=== PATIENT | male | born 1980 | race Caucasian/White ===

== ENCOUNTER 2024-06-18 21:01 | Inpatient (IN) | payer BC ==
[2024-06-18] MEDS ORDERED: Sodium Chloride 0.9% 10 ML Syringe FLUSH PRN (21:14)
[2024-06-18 21:21] LABS: BASOPHILS ABSOLUTE AUTO 0.1 K/mm3 (0.0-0.2); BASOPHILS PERCENT AUTO 0.4 % (0.0-1.0); EOSINOPHILS ABSOLUTE AUTO 0.1 K/mm3 (0.0-0.4); EOSINOPHILS PERCENT AUTO 1.1 % (0.0-6.0); HEMATOCRIT 48.3 % (42.0-52.0); HEMOGLOBIN 16.6 gm/dl (14.0-18.0); IMMATURE GRAN ABSOLUTE AUTO 0.02 K/mm3 (0.00-0.05); IMMATURE GRAN PERCENT AUTO 0.2 % (0.0-0.4); LYMPHOCYTES ABSOLUTE AUTO 1.6 K/mm3 (1.0-4.8); LYMPHOCYTES PERCENT AUTO 12.9 % (24.0-44.0); MEAN CORPUSCULAR HEMOGLOBIN 31.6 pg (28.0-32.0); MEAN CORPUSCULAR HGB CONC 34.4 g/dl (32.0-36.0); MEAN CORPUSCULAR VOLUME 91.8 fl (83.0-99.0); MEAN PLATELET VOLUME 9.8 fl (9.4-12.4); MONOCYTES ABSOLUTE AUTO 1.2 K/mm3 (0.0-0.8); MONOCYTES PERCENT AUTO 9.9 % (0.0-8.0); NEUTROPHILS ABSOLUTE AUTO 9.5 K/mm3 (1.8-7.7); NEUTROPHILS PERCENT AUTO 75.5 % (41.0-71.0); PLATELET COUNT,PLT 258 K/mm3 (150-400); RED BLOOD CELL COUNT 5.26 M/mm3 (4.52-5.90); WHITE BLOOD CELL COUNT,WBC 12.55 K/mm3 (3.9-11.3)
[2024-06-18] MEDS ORDERED: Naloxone 0.4 MG/ML SDV IVPUSH PRN (21:30)
[2024-06-18] MEDS: Metoprolol Tartrate 5 MG/5 ML SDV IV ONE (21:31)
[2024-06-18] MEDS: Aspirin 81 MG Tab.Chew PO ONE (21:32)
[2024-06-18] MEDS: Iopamidol 755 Mg/ML 100 ML Bottle IVPUSH ONE (21:32)
[2024-06-18] MEDS: Sodium Chloride 0.9% 45 ML IV SCH (21:33)
[2024-06-18] MEDS: Morphine 4 MG/ML Syringe IVPUSH ONE (21:36)
[2024-06-18 21:38] LABS: INR 1.07; PROTHROMBIN TIME 11.3 SECONDS (9.7-12.0)
[2024-06-18 21:40] LABS: PTT,PARTIAL THROMBOPLSTIN TIME 28.3 SECONDS (21.7-31.4)
[2024-06-18 21:46] LABS: A/G RATIO 0.9 (1-2); ALANINE AMINOTRANSFERASE,ALT 56 U/L (16-63); ALBUMIN 3.9 g/dl (3.4-5.0); ALKALINE PHOSPHATASE 67 U/L (46-116); ANION GAP 14.7 (5-15); ASPARTATE AMNIOTRANSFERASE,AST 39 U/L (15-37); BILIRUBIN TOTAL 2.2 mg/dL (0.2-1.0); BLOOD UREA NITROGEN,BUN 14 mg/dL (7-18); BUN/CREATININE RATIO 10.8 (14-18); CARBON DIOXIDE,CO2 27 mEq/L (21-32); CHLORIDE,CL 101 mEq/L (98-107); CREATININE 1.3 mg/dL (0.7-1.3); ESTIMATED GFR 69 mL/min (>60); GLUCOSE RANDOM 169 mg/dL (70-99); POTASSIUM,K 3.7 mEq/L (3.5-5.1); PROTEIN TOTAL,TP 8.1 g/dl (6.4-8.2); SODIUM,NA 139 mEq/L (136-145)
[2024-06-18 21:56] LABS: TROPONIN I HIGH SENSITIVITY < 4 pg/mL (<=76)
[2024-06-18] MEDS: Sodium Chloride 0.9% 1,000 ML IV ONE (22:06)
[2024-06-18] MEDS: cefTRIAXone 2 GM Vial IVPUSH ONE (22:06)
[2024-06-18] MEDS ORDERED: Ibuprofen 800 MG Tab PO PRN (22:55)
[2024-06-18] MEDS ORDERED: Acetaminophen 325 MG Tab PO PRN (22:55)
[2024-06-18] MEDS ORDERED: Ondansetron 4 MG Tab.DIS PO PRN (22:55)
[2024-06-18] MEDS ORDERED: Labetalol 100 MG/20 ML MDV IVPUSH PRN (23:01)
[2024-06-18] MEDS: Azithromycin 500 MG in Sodium Chloride 0.9% 250 ML IV ONE (23:06)
[2024-06-18 23:39] LABS: LACTIC ACID 1.2 mmol/L (0.4-2.0)
[2024-06-18] MEDS: SODIUM CHLORIDE 0.9% IV ONE (23:43)
[2024-06-19] MEDS: HYDROmorphone 0.5 MG/0.5 ML Syringe IVPUSH PRN (00:27)
[2024-06-19 02:39] LABS: APPEARANCE,URINE CLEAR (Clear); BILIRUBIN,URINE 1+ (Negative); COLOR,URINE AMBER (Yellow); GLUCOSE,URINE NEGATIVE (Negative); KETONES,URINE TRACE (Negative); LEUKOCYTE ESTERASE,URINE NEGATIVE (Negative); NITRITE,URINE NEGATIVE (Negative); OCCULT BLOOD,URINE NEGATIVE (Negative); PH,URINE 5.5 (5.0-8.0); PROTEIN,URINE 1+ (Negative)
[2024-06-19 02:58] LABS: BACTERIA,URINE RARE /hpf (FEW); EPITHELIAL CELLS,URINE 0-5 /hpf (0-5); MUCUS,URINE FEW /hpf (FEW); RBC,URINE 0-5 /hpf (0-5); WBC,URINE 0-5 /hpf (0-5)
[2024-06-19 03:03] LABS: BARBITURATE SCREEN,URINE NEGATIVE (CUTOFF=200); BENZODIAZEPINES SCREEN,URINE NEGATIVE (CUTOFF=150); BUPRENORPHINE SCREEN,URINE NEGATIVE (CUTOFF=10); METHADONE SCREEN, URINE NEGATIVE (CUT0FF=200); METHAMPHETAMINES SCREEN, URINE NEGATIVE (CUTOFF=500); OXYCODONE SCREEN,URINE NEGATIVE (CUT0FF=100); THC SCREEN,URINE 20 NG/ML NEGATIVE (CUTOFF=50)
[2024-06-19 03:10] LABS: AMPHETAMINES SCREEN, URINE NEGATIVE (CUTOFF=500)
[2024-06-19 03:54] LABS: CORONAVIRUS COVID-19 NAA NEGATIVE (NEGATIVE); INFLUENZA A NAA NEGATIVE (NEGATIVE); RESPIRATORY SYNCYTIAL VIR NAA NEGATIVE (NEGATIVE)
[2024-06-19 05:32] LABS: BASOPHILS PERCENT AUTO 0.1 % (0.0-1.0); EOSINOPHILS PERCENT AUTO 0.1 % (0.0-6.0); HEMATOCRIT 45.8 % (42.0-52.0); HEMOGLOBIN 15.2 gm/dl (14.0-18.0); IMMATURE GRAN ABSOLUTE AUTO 0.08 K/mm3 (0.00-0.05); IMMATURE GRAN PERCENT AUTO 0.5 % (0.0-0.4); LYMPHOCYTES ABSOLUTE AUTO 0.6 K/mm3 (1.0-4.8); LYMPHOCYTES PERCENT AUTO 3.7 % (24.0-44.0); MEAN CORPUSCULAR HEMOGLOBIN 31.4 pg (28.0-32.0); MEAN CORPUSCULAR HGB CONC 33.2 g/dl (32.0-36.0); MEAN CORPUSCULAR VOLUME 94.6 fl (83.0-99.0); MEAN PLATELET VOLUME 9.8 fl (9.4-12.4); MONOCYTES ABSOLUTE AUTO 1.3 K/mm3 (0.0-0.8); MONOCYTES PERCENT AUTO 8.5 % (0.0-8.0); NEUTROPHILS ABSOLUTE AUTO 12.9 K/mm3 (1.8-7.7); NEUTROPHILS PERCENT AUTO 87.1 % (41.0-71.0); PLATELET COUNT,PLT 201 K/mm3 (150-400); RED BLOOD CELL COUNT 4.84 M/mm3 (4.52-5.90); WHITE BLOOD CELL COUNT,WBC 14.86 K/mm3 (3.9-11.3)
[2024-06-19 05:47] LABS: A/G RATIO 0.8 (1-2); ALBUMIN 3.2 g/dl (3.4-5.0); ANION GAP 13.4 (5-15); BUN/CREATININE RATIO 11.8 (14-18); CALCIUM 8.4 mg/dL (8.5-10.1); CREATININE 1.1 mg/dL (0.7-1.3); EST CRCL DRUG DOSING (CG) 93.08 mL/min; MAGNESIUM 1.9 mg/dL (1.8-2.4); PHOSPHORUS 3.1 mg/dL (2.6-4.7); POTASSIUM,K 4.4 mEq/L (3.5-5.1); PROTEIN TOTAL,TP 7.1 g/dl (6.4-8.2)
[2024-06-19] MEDS ORDERED: Labetalol 100 MG/20 ML MDV IVPUSH PRN (10:07)
[2024-06-19] MEDS ORDERED: hydrALAZINE 20 MG/ML SDV IVPUSH PRN (10:07)
[2024-06-19] MEDS ORDERED: Lactated Ringers 1,000 ML IV SCH (10:15)
[2024-06-19] MEDS: Magnesium Sulfat/D5W 1GM/100ML 1 GM in Premix Bag 1 BAG IV ONE (10:27)
[2024-06-19] MEDS: Enoxaparin 40 MG/0.4 ML Syringe SUBCUT SCH (10:31)
[2024-06-19 10:36] LABS: HEMOGLOBIN A1C 4.7 %
[2024-06-19] MEDS: Azithromycin 500 MG in Sodium Chloride 0.9% 250 ML IV SCH (11:35)
[2024-06-19] MEDS: cefTRIAXone 1 GM Vial IVPUSH SCH (11:36)
[2024-06-19] MEDS: cefTRIAXone 1 GM Vial IM SCH (11:52)
[2024-06-19] MEDS: Famotidine 20 MG/2 ML SDV IVPUSH SCH (20:27)
[2024-06-19] MEDS: Melatonin 3 MG Tab PO PRN (23:38)
[2024-06-19] MEDS: Albuterol/Ipratropium 3.0-0.5 MG/3 ML Neb Soln NEB PRN (23:48)
[2024-06-20] MEDS: Codeine/guaiFENesin 10-100 MG/5 ML Syrup 5 ML Cup PO PRN (00:09)
[2024-06-20 05:32] LABS: BASOPHILS PERCENT AUTO 0.2 % (0.0-1.0); EOSINOPHILS PERCENT AUTO 0.1 % (0.0-6.0); HEMATOCRIT 44.4 % (42.0-52.0); HEMOGLOBIN 15.3 gm/dl (14.0-18.0); IMMATURE GRAN ABSOLUTE AUTO 0.14 K/mm3 (0.00-0.05); IMMATURE GRAN PERCENT AUTO 0.8 % (0.0-0.4); LYMPHOCYTES ABSOLUTE AUTO 0.7 K/mm3 (1.0-4.8); MEAN CORPUSCULAR HEMOGLOBIN 31.7 pg (28.0-32.0); MEAN CORPUSCULAR HGB CONC 34.5 g/dl (32.0-36.0); MEAN CORPUSCULAR VOLUME 92.1 fl (83.0-99.0); MONOCYTES ABSOLUTE AUTO 1.5 K/mm3 (0.0-0.8); MONOCYTES PERCENT AUTO 8.5 % (0.0-8.0); NEUTROPHILS ABSOLUTE AUTO 15.5 K/mm3 (1.8-7.7); NEUTROPHILS PERCENT AUTO 86.4 % (41.0-71.0); PLATELET COUNT,PLT 208 K/mm3 (150-400); RED BLOOD CELL COUNT 4.82 M/mm3 (4.52-5.90)
[2024-06-20] MEDS: Piperacillin/Tazobactam 4.5 GM in Sodium Chloride 0.9% 100 ML IV ONE (06:22)
[2024-06-20] MEDS: Sodium Chloride 0.9% 10 ML Syringe FLUSH PRN (08:04)
[2024-06-20] MEDS: Iopamidol 612 MG/ML 100 ML Bottle IVPUSH ONE (08:04)
[2024-06-20 08:43] LABS: A/G RATIO 0.7 (1-2); ALANINE AMINOTRANSFERASE,ALT 41 U/L (16-63); ALBUMIN 2.9 g/dl (3.4-5.0); ALKALINE PHOSPHATASE 57 U/L (46-116); ANION GAP 19.9 (5-15); ASPARTATE AMNIOTRANSFERASE,AST 23 U/L (15-37); BILIRUBIN TOTAL 3.8 mg/dL (0.2-1.0); BLOOD UREA NITROGEN,BUN 14 mg/dL (7-18); BUN/CREATININE RATIO 11.7 (14-18); CALCIUM 9.2 mg/dL (8.5-10.1); CARBON DIOXIDE,CO2 21 mEq/L (21-32); CHLORIDE,CL 97 mEq/L (98-107); CREATININE 1.2 mg/dL (0.7-1.3); EST CRCL DRUG DOSING (CG) 85.32 mL/min; ESTIMATED GFR 76 mL/min (>60); GLUCOSE RANDOM 143 mg/dL (70-99); PHOSPHORUS 2.8 mg/dL (2.6-4.7); POTASSIUM,K 3.9 mEq/L (3.5-5.1); SODIUM,NA 134 mEq/L (136-145)
[2024-06-20] MEDS ORDERED: Lactated Ringers 1,000 ML IV ONE (09:00)
[2024-06-20 09:09] LABS: C-REACTIVE PROTEIN > 25.00 mg/dL (<0.30)
[2024-06-20] MEDS ORDERED: Midazolam 1 MG/ML 2 ML SDV ONE (09:16)
[2024-06-20] MEDS ORDERED: Propofol 200 MG/20 ML SDV ONE (09:16)
[2024-06-20] MEDS ORDERED: Ketamine 200 MG/20 ML MDV ONE (09:16)
[2024-06-20] MEDS ORDERED: Lidocaine 2% 5 ML SDV ONE (09:17)
[2024-06-20] MEDS: VANCOmycin 1.5 GM/300 ML 1.5 GM in Premix Bag 1 BAG IV SCH (09:27)
[2024-06-20] MEDS ORDERED: Ondansetron 4 MG/2 ML SDV ONE (09:49)
[2024-06-20] MEDS: Bupivacaine 0.5% 30 ML SDV ONE (09:50)
[2024-06-20] MEDS: EPINEPHrine 1 MG/ML SDV ONE (09:50)
[2024-06-20] MEDS ORDERED: Piperacillin/Tazobactam 4.5 GM in Sodium Chloride 0.9% 100 ML IV SCH (10:00)
[2024-06-20] MEDS ORDERED: HYDROmorphone 0.5 MG/0.5 ML Syringe IVPUSH PRN (10:45)
[2024-06-20] MEDS ORDERED: fentaNYL 100 MCG/2 ML SDV IVPUSH PRN (10:45)
[2024-06-20] MEDS ORDERED: Ondansetron 4 MG/2 ML SDV IVPUSH PRN (10:45)
[2024-06-20] MEDS: Piperacillin/Tazobactam 4.5 GM in Sodium Chloride 0.9% 100 ML IV SCH (11:37)
[2024-06-20] MEDS: Sodium Chloride 0.9% 1,000 ML IV SCH (11:37)
[2024-06-20] MEDS: Sodium Chloride 0.9% 1,000 ML IV ONE (11:56)
[2024-06-20] MEDS: Acetaminophen/HYDROcodone 325-5 MG Tab PO PRN (13:52)
[2024-06-20] MEDS: oxyCODONE 5 MG Tab PO PRN (23:36)
[2024-06-21 04:43] LABS: BASOPHILS PERCENT AUTO 0.2 % (0.0-1.0); EOSINOPHILS PERCENT AUTO 0.1 % (0.0-6.0); HEMATOCRIT 40.4 % (42.0-52.0); HEMOGLOBIN 13.5 gm/dl (14.0-18.0); IMMATURE GRAN PERCENT AUTO 0.6 % (0.0-0.4); LYMPHOCYTES ABSOLUTE AUTO 0.5 K/mm3 (1.0-4.8); MEAN CORPUSCULAR HEMOGLOBIN 30.8 pg (28.0-32.0); MEAN CORPUSCULAR HGB CONC 33.4 g/dl (32.0-36.0); MEAN CORPUSCULAR VOLUME 92.2 fl (83.0-99.0); MEAN PLATELET VOLUME 9.8 fl (9.4-12.4); MONOCYTES ABSOLUTE AUTO 1.3 K/mm3 (0.0-0.8); MONOCYTES PERCENT AUTO 7.4 % (0.0-8.0); NEUTROPHILS ABSOLUTE AUTO 15.1 K/mm3 (1.8-7.7); NEUTROPHILS PERCENT AUTO 88.7 % (41.0-71.0); PLATELET COUNT,PLT 222 K/mm3 (150-400); RED BLOOD CELL COUNT 4.38 M/mm3 (4.52-5.90); WHITE BLOOD CELL COUNT,WBC 16.99 K/mm3 (3.9-11.3)
[2024-06-21 05:11] LABS: A/G RATIO 0.6 (1-2); ALANINE AMINOTRANSFERASE,ALT 24 U/L (16-63); ALBUMIN 2.2 g/dl (3.4-5.0); ALKALINE PHOSPHATASE 50 U/L (46-116); ANION GAP 12.9 (5-15); ASPARTATE AMNIOTRANSFERASE,AST 13 U/L (15-37); BILIRUBIN TOTAL 1.6 mg/dL (0.2-1.0); BLOOD UREA NITROGEN,BUN 14 mg/dL (7-18); CALCIUM 8.6 mg/dL (8.5-10.1); CARBON DIOXIDE,CO2 24 mEq/L (21-32); CHLORIDE,CL 100 mEq/L (98-107); EST CRCL DRUG DOSING (CG) 102.39 mL/min; ESTIMATED GFR 95 mL/min (>60); GLUCOSE RANDOM 116 mg/dL (70-99); MAGNESIUM 1.9 mg/dL (1.8-2.4); POTASSIUM,K 3.9 mEq/L (3.5-5.1); PROTEIN TOTAL,TP 6.2 g/dl (6.4-8.2); SODIUM,NA 133 mEq/L (136-145); VANCOMYCIN RANDOM 10.7 ug/mL
[2024-06-21 05:38] LABS: C-REACTIVE PROTEIN > 25.00 mg/dL (<0.30)
[2024-06-21] MEDS: Furosemide 20 MG/2 ML VIAL IVPUSH ONE (08:27)
[2024-06-21] MEDS: Albuterol/Ipratropium 3.0-0.5 MG/3 ML Neb Soln NEB SCH (09:34)
[2024-06-21] MEDS: VANCOmycin 1.25 GM/250 ML 1.25 GM in Premix Bag 1 BAG IV SCH (15:19)
[2024-06-22 04:31] LABS: BASOPHILS PERCENT AUTO 0.2 % (0.0-1.0); EOSINOPHILS ABSOLUTE AUTO 0.3 K/mm3 (0.0-0.4); EOSINOPHILS PERCENT AUTO 1.9 % (0.0-6.0); HEMATOCRIT 37.4 % (42.0-52.0); HEMOGLOBIN 12.6 gm/dl (14.0-18.0); IMMATURE GRAN ABSOLUTE AUTO 0.11 K/mm3 (0.00-0.05); IMMATURE GRAN PERCENT AUTO 0.8 % (0.0-0.4); LYMPHOCYTES ABSOLUTE AUTO 0.5 K/mm3 (1.0-4.8); LYMPHOCYTES PERCENT AUTO 3.8 % (24.0-44.0); MEAN CORPUSCULAR HEMOGLOBIN 31.1 pg (28.0-32.0); MEAN CORPUSCULAR HGB CONC 33.7 g/dl (32.0-36.0); MEAN CORPUSCULAR VOLUME 92.3 fl (83.0-99.0); MEAN PLATELET VOLUME 10.1 fl (9.4-12.4); MONOCYTES PERCENT AUTO 7.4 % (0.0-8.0); NEUTROPHILS PERCENT AUTO 85.9 % (41.0-71.0); PLATELET COUNT,PLT 213 K/mm3 (150-400); RED BLOOD CELL COUNT 4.05 M/mm3 (4.52-5.90); WHITE BLOOD CELL COUNT,WBC 13.98 K/mm3 (3.9-11.3)
[2024-06-22 04:56] LABS: A/G RATIO 0.5 (1-2); ALANINE AMINOTRANSFERASE,ALT 18 U/L (16-63); ALBUMIN 2.1 g/dl (3.4-5.0); ALKALINE PHOSPHATASE 56 U/L (46-116); ANION GAP 13.5 (5-15); ASPARTATE AMNIOTRANSFERASE,AST 19 U/L (15-37); BILIRUBIN TOTAL 1.3 mg/dL (0.2-1.0); BLOOD UREA NITROGEN,BUN 17 mg/dL (7-18); CALCIUM 8.8 mg/dL (8.5-10.1); CARBON DIOXIDE,CO2 26 mEq/L (21-32); CHLORIDE,CL 99 mEq/L (98-107); EST CRCL DRUG DOSING (CG) 102.39 mL/min; ESTIMATED GFR 95 mL/min (>60); GLUCOSE RANDOM 113 mg/dL (70-99); MAGNESIUM 2.1 mg/dL (1.8-2.4); POTASSIUM,K 3.5 mEq/L (3.5-5.1); PROTEIN TOTAL,TP 6.3 g/dl (6.4-8.2); SODIUM,NA 135 mEq/L (136-145)
[2024-06-22 05:15] LABS: C-REACTIVE PROTEIN > 25.00 mg/dL (<0.30)
[2024-06-22] MEDS: Sennosides/Docusate Sodium 50-8.6 MG Tab PO PRN (08:37)
[2024-06-23 04:20] LABS: BASOPHILS PERCENT AUTO 0.3 % (0.0-1.0); EOSINOPHILS ABSOLUTE AUTO 0.1 K/mm3 (0.0-0.4); EOSINOPHILS PERCENT AUTO 0.9 % (0.0-6.0); HEMOGLOBIN 12.7 gm/dl (14.0-18.0); IMMATURE GRAN ABSOLUTE AUTO 0.05 K/mm3 (0.00-0.05); IMMATURE GRAN PERCENT AUTO 0.4 % (0.0-0.4); LYMPHOCYTES ABSOLUTE AUTO 0.4 K/mm3 (1.0-4.8); LYMPHOCYTES PERCENT AUTO 3.8 % (24.0-44.0); MEAN CORPUSCULAR HEMOGLOBIN 31.4 pg (28.0-32.0); MEAN CORPUSCULAR HGB CONC 33.4 g/dl (32.0-36.0); MEAN CORPUSCULAR VOLUME 93.8 fl (83.0-99.0); MEAN PLATELET VOLUME 10.1 fl (9.4-12.4); MONOCYTES ABSOLUTE AUTO 0.9 K/mm3 (0.0-0.8); MONOCYTES PERCENT AUTO 7.8 % (0.0-8.0); NEUTROPHILS ABSOLUTE AUTO 9.7 K/mm3 (1.8-7.7); NEUTROPHILS PERCENT AUTO 86.8 % (41.0-71.0); PLATELET COUNT,PLT 196 K/mm3 (150-400); RED BLOOD CELL COUNT 4.05 M/mm3 (4.52-5.90)
[2024-06-23 04:45] LABS: A/G RATIO 0.5 (1-2); ALBUMIN 2.1 g/dl (3.4-5.0); ANION GAP 12.3 (5-15); BILIRUBIN TOTAL 1.1 mg/dL (0.2-1.0); C-REACTIVE PROTEIN 22.79 mg/dL (<0.30); CALCIUM 8.7 mg/dL (8.5-10.1); EST CRCL DRUG DOSING (CG) 102.39 mL/min; MAGNESIUM 2.1 mg/dL (1.8-2.4); POTASSIUM,K 3.3 mEq/L (3.5-5.1); PROTEIN TOTAL,TP 6.3 g/dl (6.4-8.2)
[2024-06-23] MEDS: Potassium Chloride 20 MEQ Tab.ER PO ONE (08:14)
[2024-06-23] MEDS: HYDROmorphone 0.5 MG/0.5 ML Syringe IVPUSH PRN (14:08)
[2024-06-24 04:51] LABS: BASOPHILS PERCENT AUTO 0.3 % (0.0-1.0); EOSINOPHILS ABSOLUTE AUTO 0.2 K/mm3 (0.0-0.4); EOSINOPHILS PERCENT AUTO 1.5 % (0.0-6.0); HEMATOCRIT 35.3 % (42.0-52.0); HEMOGLOBIN 11.9 gm/dl (14.0-18.0); IMMATURE GRAN ABSOLUTE AUTO 0.04 K/mm3 (0.00-0.05); IMMATURE GRAN PERCENT AUTO 0.4 % (0.0-0.4); LYMPHOCYTES ABSOLUTE AUTO 0.4 K/mm3 (1.0-4.8); LYMPHOCYTES PERCENT AUTO 4.4 % (24.0-44.0); MEAN CORPUSCULAR HEMOGLOBIN 31.1 pg (28.0-32.0); MEAN CORPUSCULAR HGB CONC 33.7 g/dl (32.0-36.0); MEAN CORPUSCULAR VOLUME 92.2 fl (83.0-99.0); MEAN PLATELET VOLUME 10.1 fl (9.4-12.4); MONOCYTES ABSOLUTE AUTO 0.7 K/mm3 (0.0-0.8); MONOCYTES PERCENT AUTO 6.9 % (0.0-8.0); NEUTROPHILS ABSOLUTE AUTO 8.6 K/mm3 (1.8-7.7); NEUTROPHILS PERCENT AUTO 86.5 % (41.0-71.0); PLATELET COUNT,PLT 204 K/mm3 (150-400); RED BLOOD CELL COUNT 3.83 M/mm3 (4.52-5.90)
[2024-06-24 05:32] LABS: C-REACTIVE PROTEIN 16.17 mg/dL (<0.30); MAGNESIUM 2.1 mg/dL (1.8-2.4)
[2024-06-24] MEDS: Loperamide 2 MG Cap PO PRN (09:48)
[2024-06-24] MEDS: Famotidine 20 MG Tab PO SCH (21:32)
[2024-06-25 05:50] LABS: HEMATOCRIT 36.9 % (42.0-52.0); HEMOGLOBIN 12.2 gm/dl (14.0-18.0); MEAN CORPUSCULAR HEMOGLOBIN 30.8 pg (28.0-32.0); MEAN CORPUSCULAR HGB CONC 33.1 g/dl (32.0-36.0); MEAN CORPUSCULAR VOLUME 93.2 fl (83.0-99.0); MEAN PLATELET VOLUME 10.2 fl (9.4-12.4); PLATELET COUNT,PLT 222 K/mm3 (150-400); RED BLOOD CELL COUNT 3.96 M/mm3 (4.52-5.90); WHITE BLOOD CELL COUNT,WBC 7.44 K/mm3 (3.9-11.3)
[2024-06-25 06:20] LABS: A/G RATIO 0.5 (1-2); ANION GAP 9.9 (5-15); BILIRUBIN TOTAL 0.8 mg/dL (0.2-1.0); BUN/CREATININE RATIO 13.8 (14-18); CALCIUM 8.9 mg/dL (8.5-10.1); CREATININE 0.8 mg/dL (0.7-1.3); EST CRCL DRUG DOSING (CG) 127.99 mL/min; POTASSIUM,K 2.9 mEq/L (3.5-5.1)
[2024-06-25] MEDS: Furosemide 20 MG/2 ML VIAL IVPUSH ONE (09:16)
[2024-06-25] MEDS: cefTRIAXone 1 GM Vial IVPUSH SCH (09:16)
[2024-06-25] MEDS: Magnesium Sulfat/D5W 1GM/100ML 1 GM in Premix Bag 1 BAG IV ONE (09:16)
[2024-06-25] MEDS: Potassium Chloride 10 MEQ in Premix Bag 1 BAG IV SCH (09:17)
[2024-06-25] MEDS: Potassium Chloride 20 MEQ Tab.ER PO ONE (09:31)
[2024-06-25] MEDS: Albuterol/Ipratropium 3.0-0.5 MG/3 ML Neb Soln NEB PRN (10:07)
[2024-06-25] MEDS: Pantoprazole 40 MG Tab.CR PO SCH (21:41)
[2024-06-26 06:10] LABS: ANION GAP 12.3 (5-15); BUN/CREATININE RATIO 13.3 (14-18); C-REACTIVE PROTEIN 10.84 mg/dL (<0.30); CALCIUM 8.7 mg/dL (8.5-10.1); CREATININE 0.9 mg/dL (0.7-1.3); EST CRCL DRUG DOSING (CG) 113.77 mL/min; MAGNESIUM 2.2 mg/dL (1.8-2.4); PHOSPHORUS 3.8 mg/dL (2.6-4.7); POTASSIUM,K 3.3 mEq/L (3.5-5.1)
[2024-06-26] MEDS: Potassium Chloride 20 MEQ Tab.ER PO ONE ×2 (18:03→21:20)
[2024-06-26] MEDS: Furosemide 20 MG/2 ML VIAL IVPUSH ONE (18:04)
[2024-06-27 05:45] LABS: ANION GAP 12.9 (5-15); BUN/CREATININE RATIO 15.6 (14-18); C-REACTIVE PROTEIN 9.27 mg/dL (<0.30); CALCIUM 8.9 mg/dL (8.5-10.1); CREATININE 0.9 mg/dL (0.7-1.3); EST CRCL DRUG DOSING (CG) 113.77 mL/min; POTASSIUM,K 3.9 mEq/L (3.5-5.1)
[2024-06-28] MEDS ORDERED: fentaNYL 100 MCG/2 ML SDV IVPUSH PRN (07:08)
[2024-06-28] MEDS ORDERED: fentaNYL 250 MCG/5 ML SDV ONE (10:22)
[2024-06-28] MEDS ORDERED: Dexamethasone 4 MG/ML 5 ML MDV ONE (10:22)
[2024-06-28] MEDS ORDERED: Propofol 200 MG/20 ML SDV ONE ×2 (10:22→12:35)
[2024-06-28] MEDS ORDERED: Sugammadex Sodium 200 MG/2 ML VIAL IV ONE (10:22)
[2024-06-28] MEDS ORDERED: Lidocaine 1% 5 ML VIAL ONE (10:22)
[2024-06-28] MEDS ORDERED: Phenylephrine 1% 10 MG/ML SDV ONE (10:22)
[2024-06-28] MEDS ORDERED: Rocuronium 50 MG/5 ML Vial ONE ×2 (10:22→12:06)
[2024-06-28] MEDS ORDERED: Ondansetron 4 MG/2 ML SDV ONE (10:22)
[2024-06-28] MEDS ORDERED: Lactated Ringers 1,000 ML ONE (10:22)
[2024-06-28] MEDS ORDERED: Midazolam 1 MG/ML 2 ML SDV ONE (10:26)
[2024-06-28] MEDS ORDERED: Ketamine 200 MG/20 ML MDV ONE (11:20)
[2024-06-28] MEDS ORDERED: HYDROmorphone 0.5 MG/0.5 ML Syringe ONE (11:43)
[2024-06-28] MEDS: EPINEPHrine 1 MG/ML SDV ONE (12:17)
[2024-06-28] MEDS: Bupivacaine 0.5% 30 ML SDV ONE (12:17)
[2024-06-28] MEDS ORDERED: fentaNYL 100 MCG/2 ML SDV ONE (12:37)
[2024-06-28] MEDS: HYDROmorphone 0.5 MG/0.5 ML Syringe IVPUSH ONE (15:23)
[2024-06-28] MEDS: Furosemide 20 MG/2 ML VIAL IVPUSH ONE (16:41)
[2024-06-28] MEDS ORDERED: HYDROmorphone 0.5 MG/0.5 ML Syringe IVPUSH PRN (18:37)
[2024-06-29 05:35] LABS: BASOPHILS PERCENT AUTO 0.2 % (0.0-1.0); EOSINOPHILS PERCENT AUTO 0.1 % (0.0-6.0); HEMATOCRIT 43.9 % (42.0-52.0); HEMOGLOBIN 14.4 gm/dl (14.0-18.0); IMMATURE GRAN ABSOLUTE AUTO 0.15 K/mm3 (0.00-0.05); IMMATURE GRAN PERCENT AUTO 0.9 % (0.0-0.4); LYMPHOCYTES ABSOLUTE AUTO 0.7 K/mm3 (1.0-4.8); LYMPHOCYTES PERCENT AUTO 4.1 % (24.0-44.0); MEAN CORPUSCULAR HEMOGLOBIN 29.9 pg (28.0-32.0); MEAN CORPUSCULAR HGB CONC 32.8 g/dl (32.0-36.0); MEAN CORPUSCULAR VOLUME 91.1 fl (83.0-99.0); MEAN PLATELET VOLUME 9.8 fl (9.4-12.4); MONOCYTES ABSOLUTE AUTO 1.1 K/mm3 (0.0-0.8); MONOCYTES PERCENT AUTO 6.1 % (0.0-8.0); NEUTROPHILS ABSOLUTE AUTO 15.3 K/mm3 (1.8-7.7); NEUTROPHILS PERCENT AUTO 88.6 % (41.0-71.0); PLATELET COUNT,PLT 449 K/mm3 (150-400); RED BLOOD CELL COUNT 4.82 M/mm3 (4.52-5.90); WHITE BLOOD CELL COUNT,WBC 17.21 K/mm3 (3.9-11.3)
[2024-06-29 05:58] LABS: A/G RATIO 0.6 (1-2); ALBUMIN 2.8 g/dl (3.4-5.0); ANION GAP 11.1 (5-15); BILIRUBIN TOTAL 0.9 mg/dL (0.2-1.0); BUN/CREATININE RATIO 13.6 (14-18); C-REACTIVE PROTEIN 8.88 mg/dL (<0.30); CALCIUM 9.3 mg/dL (8.5-10.1); CREATININE 1.1 mg/dL (0.7-1.3); EST CRCL DRUG DOSING (CG) 93.08 mL/min; MAGNESIUM 2.2 mg/dL (1.8-2.4); PHOSPHORUS 4.4 mg/dL (2.6-4.7); POTASSIUM,K 4.1 mEq/L (3.5-5.1); PROTEIN TOTAL,TP 7.6 g/dl (6.4-8.2)
[2024-06-29] MEDS: cefTRIAXone 2 GM Vial IVPUSH SCH (10:22)
[2024-06-30 09:39] LABS: BASOPHILS ABSOLUTE AUTO 0.1 K/mm3 (0.0-0.2); BASOPHILS PERCENT AUTO 0.4 % (0.0-1.0); EOSINOPHILS PERCENT AUTO 0.4 % (0.0-6.0); HEMATOCRIT 39.7 % (42.0-52.0); HEMOGLOBIN 13.2 gm/dl (14.0-18.0); IMMATURE GRAN ABSOLUTE AUTO 0.08 K/mm3 (0.00-0.05); IMMATURE GRAN PERCENT AUTO 0.7 % (0.0-0.4); LYMPHOCYTES ABSOLUTE AUTO 0.7 K/mm3 (1.0-4.8); LYMPHOCYTES PERCENT AUTO 6.3 % (24.0-44.0); MEAN CORPUSCULAR HEMOGLOBIN 30.6 pg (28.0-32.0); MEAN CORPUSCULAR HGB CONC 33.2 g/dl (32.0-36.0); MEAN CORPUSCULAR VOLUME 91.9 fl (83.0-99.0); MEAN PLATELET VOLUME 9.7 fl (9.4-12.4); MONOCYTES ABSOLUTE AUTO 0.6 K/mm3 (0.0-0.8); MONOCYTES PERCENT AUTO 5.2 % (0.0-8.0); NEUTROPHILS ABSOLUTE AUTO 9.9 K/mm3 (1.8-7.7); PLATELET COUNT,PLT 447 K/mm3 (150-400); RED BLOOD CELL COUNT 4.32 M/mm3 (4.52-5.90); WHITE BLOOD CELL COUNT,WBC 11.39 K/mm3 (3.9-11.3)
[2024-06-30 10:02] LABS: A/G RATIO 0.6 (1-2); ALBUMIN 2.7 g/dl (3.4-5.0); ANION GAP 16.6 (5-15); BILIRUBIN TOTAL 0.6 mg/dL (0.2-1.0); BUN/CREATININE RATIO 16.4 (14-18); CREATININE 1.1 mg/dL (0.7-1.3); EST CRCL DRUG DOSING (CG) 93.08 mL/min; POTASSIUM,K 3.6 mEq/L (3.5-5.1); PROTEIN TOTAL,TP 7.2 g/dl (6.4-8.2)
== END 2024-06-30 13:55 | disposition home or self-care (01) | DRG 720 ==
LOC: JD.ED 21:01 → JD.MS 23:40
PROVIDERS: ADMIT Student in an Organized Health Care Education/Training Program; ATTEND Family Medicine
PROC: 0W9B00Z Drainage of Left Pleural Cavity with Drainage Device, Open Approach (ICD-10-PCS; principal; 2024-06-18)
PROC: 3E03329 Introduction of Other Anti-infective into Peripheral Vein, Percutaneous Approach (ICD-10-PCS; principal; 2024-06-18)
DX: A41.9 Sepsis, unspecified organism (principal); J18.9 Pneumonia, unspecified organism; J96.01 Acute respiratory failure with hypoxia; E86.0 Dehydration; R65.20 Severe sepsis without septic shock; E80.6 Other disorders of bilirubin metabolism; R73.9 Hyperglycemia, unspecified; E87.1 Hypo-osmolality and hyponatremia; E87.6 Hypokalemia
CPT/HCPCS: 00940; 0241U; 36415; 71045; 71045-26; 71046; 71046-26; 71250; 71250-26; 71260; 71260-26; 71275; 71275-26; 80048; 80053; 80202; 80306; 81001; 83036; 83605; 83735; 83880; 84100; 84484; 85025; 85027; 85610; 85730; 86140; 86850; 86900; 86901; 87040; 87070; 87075; 87077; 87086; 87186; 87205; 93005; 93010; 94640; 94667; 94668; 94760; 94761; 96365; 96366; 96368; 96375; 97161-GP; 97530-GP; 99140; 99285; 99285-25; A9270-GY; C1729; J0171; J0456; J0665; J0696; J1100; J1650; J1938; J2003; J2250; J2270; J2371; J2405; J2543; J2704; J3010; J3372; J3475; J3480; J3490; J7030; J7120; Q9967